=== PATIENT | female | born 1965 | race Caucasian/White ===

== ENCOUNTER → 2020-05-18 | Outpatient (CLI) | payer BC ==
[~2020-05-18] MED LIST: DIPH25CA57 PO; METO50TA4 PO
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
== END | disposition home or self-care (01) ==
LOC: RAD 10:44
PROVIDERS: ATTEND Nurse Practitioner Family
DX: M25.552 Pain in left hip (principal); M25.551 Pain in right hip
CPT/HCPCS: 73502

== ENCOUNTER → 2020-10-02 | Outpatient (CLI) | payer BC ==
[2020-10-02 12:00] LABS: BASOPHIL # 0.1 10^3/uL (0.0-0.1); BASOPHIL % 1.2 % (0.0-0.2); EOSINOPHIL # 0.3 10^3/uL (0.0-0.2); EOSINOPHIL % 5.7 % (0.0-5.0); LYMPHOCYTES # 2.22 10^3/uL1 (1.0-4.8); LYMPHOCYTES % 38.3 % (24.0-44.0); MEAN CORP HGB 25.8 pg (26-34); MONOCYTES # 0.5 10^3/uL (0.3-0.8); MONOCYTES % 8.8 % (5.0-12.0); NEUTROPHIL # 2.7 10^3/uL (1.8-7.7); PLATELET COUNT 396 10^3/uL (150-400); RED CELL DISTRIBUTION WIDTH 14.2 % (11.5-14.5)
[2020-10-02 12:27] LABS: CALCIUM 9.1 mg/dL (8.4-10.5); CARBON DIOXIDE 26.9 mmol/L (20.0-32)
[2020-10-03 08:14] LABS: FOLLICLE STIMULATING HORMONE 80.3 mIU/mL (.)
== END | disposition home or self-care (01) ==
LOC: LAB 11:47
PROVIDERS: ATTEND Nurse Practitioner Women's Health
DX: R53.83 Other fatigue (principal); E55.9 Vitamin D deficiency, unspecified; N91.2 Amenorrhea, unspecified; Z68.35 Body mass index [BMI] 35.0-35.9, adult
CPT/HCPCS: 36415; 80053; 80061; 82306; 83001; 83036; 84439; 84443; 85025

== ENCOUNTER → 2020-10-08 | Outpatient (CLI) | payer BC ==
--- NOTE | 2020-10-08 16:38 | DIREP ---
PROCEDURE:BONE DENSITY PERIPHERAL INDICATIONS:OSTEOPOROSIS COMPARISON:None. FINDINGS: Femur Proximal RIGHT femur bone mineral density (BMD) (g/cm2): 0.945 T-score : -0.5 Proximal LEFT femur bone mineral density (BMD) (g/cm2): 0.932T-score: -0.6 Lumbar Lumbar bone mineral density (BMD) (g/cm2): 1.127T-score : -0.5 Imaging- No significant findings CONCLUSION: 1. Osteopenia left femoral neck, T-score:-1.3. Osteopenia right femoral neck, T-score:-1.1. Overall bone mineral density bilateral hips within normal limits. Normal bone mineral density lumbar spine. 2. Based on the [employer] FRAX study, the patient's 10-year probability of a major osteoporotic fracture (clinical spine, forearm, hip or shoulder) is 11.0%, and the 10-year probability of a hip fracture is 0.8%. SUGGESTED RECOMMENDATIONS: Normal & Osteopenia:Consideration should be given to use of calcium supplementation, daily multiple vitamins and adequate exercise, as preventive measures against osteoporosis, if clinically indicated. Osteoporosis & Severe Osteoporosis:In addition to the above, consideration should be given to medical therapy against osteoporosis, if clinically indicated. Dictated by: Tano Wagner M.D. on 10/08/2020 at 04:35 PM
== END | disposition home or self-care (01) ==
LOC: BD 13:45
PROVIDERS: ATTEND Nurse Practitioner Women's Health
DX: Z13.820 Encounter for screening for osteoporosis (principal); M85.88 Other specified disorders of bone density and structure, other site
CPT/HCPCS: 77080

== ENCOUNTER 2021-07-15 11:18 | Emergency (ER) | payer OTHER, BC ==
[~2021-07-15] VITALS: Ht 162.6 cm; Wt 80.7 kg
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
[2021-07-15 11:32] VITALS: BP 164/99
[2021-07-15 12:56] LABS: BASOPHIL # 0.1 10^3/uL (0.0-0.1); BASOPHIL % 0.7 % (0.0-0.2); EOSINOPHIL # 0.3 10^3/uL (0.0-0.2); EOSINOPHIL % 3.5 % (0.0-5.0); LYMPHOCYTES # 1.73 10^3/uL1 (1.0-4.8); LYMPHOCYTES % 20.9 % (24.0-44.0); MEAN CORP HGB 29.7 pg (26-34); MONOCYTES # 0.6 10^3/uL (0.3-0.8); MONOCYTES % 6.9 % (5.0-12.0); NEUTROPHIL # 5.6 10^3/uL (1.8-7.7); NEUTROPHILS % 67.8 % (41.0-85.0); PLATELET COUNT 329 10^3/uL (150-400); RED CELL DISTRIBUTION WIDTH 12.8 % (11.5-14.5)
[2021-07-15 13:13] LABS: CARBON DIOXIDE 28.5 mmol/L (20.0-32)
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
== END 2021-07-15 14:53 | disposition home or self-care (01) ==
LOC: ER 11:18 → EDUNIT# 11:18 → EDBD 11:18 → ER 14:53
DX: S30.1XXA Contusion of abdominal wall, initial encounter (principal); Z79.899 Other long term (current) drug therapy; Z88.0 Allergy status to penicillin; Z90.49 Acquired absence of other specified parts of digestive tract; V49.9XXA Car occupant (driver) (passenger) injured in unspecified traffic accident, initial encounter; Y93.89 Activity, other specified; Y92.89 Other specified places as the place of occurrence of the external cause; Y99.8 Other external cause status
CPT/HCPCS: 36415; 74177; 80048; 80053; 85025; 99285; Q9965

== ENCOUNTER → 2021-09-29 | Outpatient (CLI) | payer BC ==
[2021-09-29 11:29] LABS: BASOPHIL # 0.1 10^3/uL (0.0-0.1); BASOPHIL % 1.6 % (0.0-0.2); EOSINOPHIL # 0.3 10^3/uL (0.0-0.2); EOSINOPHIL % 6.4 % (0.0-5.0); LYMPHOCYTES # 1.81 10^3/uL1 (1.0-4.8); LYMPHOCYTES % 37.1 % (24.0-44.0); MEAN CORP HGB 29.8 pg (26-34); MONOCYTES # 0.4 10^3/uL (0.3-0.8); MONOCYTES % 8.2 % (5.0-12.0); NEUTROPHIL # 2.3 10^3/uL (1.8-7.7); NEUTROPHILS % 46.7 % (41.0-85.0); PLATELET COUNT 329 10^3/uL (150-400); RED CELL DISTRIBUTION WIDTH 12.8 % (11.5-14.5)
[2021-09-29 13:01] LABS: CARBON DIOXIDE 29.8 mmol/L (20.0-32)
== END | disposition home or self-care (01) ==
LOC: LAB 11:02
PROVIDERS: ATTEND Nurse Practitioner Family
DX: I10 Essential (primary) hypertension (principal); R73.9 Hyperglycemia, unspecified; E55.9 Vitamin D deficiency, unspecified
CPT/HCPCS: 36415; 80050; 80053; 80061; 82306; 83036; 84439; 84443; 85025

== ENCOUNTER → 2022-03-03 | Outpatient (CLI) | payer BC ==
[2022-03-03 12:13] LABS: BASOPHIL # 0.1 10^3/uL (0.0-0.1); BASOPHIL % 0.9 % (0.0-0.2); EOSINOPHIL # 0.3 10^3/uL (0.0-0.2); EOSINOPHIL % 4.8 % (0.0-5.0); LYMPHOCYTES # 2.19 10^3/uL1 (1.0-4.8); LYMPHOCYTES % 40.1 % (24.0-44.0); MEAN CORP HGB 29.7 pg (26-34); MONOCYTES # 0.4 10^3/uL (0.3-0.8); MONOCYTES % 7.9 % (5.0-12.0); NEUTROPHIL # 2.5 10^3/uL (1.8-7.7); NEUTROPHILS % 46.3 % (41.0-85.0); PLATELET COUNT 323 10^3/uL (150-400); RED CELL DISTRIBUTION WIDTH 12.4 % (11.5-14.5)
[2022-03-03 12:57] LABS: CARBON DIOXIDE 28.9 mmol/L (20.0-32)
== END | disposition home or self-care (01) ==
LOC: LAB 11:45
PROVIDERS: ATTEND Nurse Practitioner Family
DX: R73.9 Hyperglycemia, unspecified (principal); I10 Essential (primary) hypertension; E55.9 Vitamin D deficiency, unspecified; E78.01 Familial hypercholesterolemia
CPT/HCPCS: 36415; 80053; 80061; 82306; 83036; 84439; 84443; 85025